=== PATIENT | female | born 2000 | race Caucasian/White ===

== ENCOUNTER 2020-09-16 11:56 | Emergency (ER) | payer OTHER, BC ==
[2020-09-16] MEDS ORDERED: ISIBLOOM 28 DA1 EACH PO (12:13)
[2020-09-16 13:07] VITALS: BP 135/82
== END 2020-09-16 13:18 | disposition home or self-care (01) ==
LOC: ED 11:56
DX: T23.272A Burn of second degree of left wrist, initial encounter (principal); Z88.0 Allergy status to penicillin; X10.0XXA Contact with hot drinks, initial encounter; Y99.0 Civilian activity done for income or pay
CPT/HCPCS: 90715

== ENCOUNTER → 2020-12-01 | Outpatient (CLI) | payer BC ==
[~2020-12-01] MED LIST: ISIBLOOM 28 DA1 EACH PO
== END ==
LOC: LAB 10:36
DX: Z03.89 Encounter for observation for other suspected diseases and conditions ruled out (principal); U07.1 COVID-19

== ENCOUNTER → 2021-05-18 | Outpatient (CLI) | payer BC | LOC: LAB 18:43 | DX: Z20.822 Contact with and (suspected) exposure to COVID-19 (principal) ==

== ENCOUNTER → 2022-01-10 | Outpatient (CLI) | payer OTHER | LOC: RAD 11:59 | DX: M79.671 Pain in right foot (principal); M79.89 Other specified soft tissue disorders ==

== ENCOUNTER → 2022-05-28 | Outpatient (CLI) | payer OTHER | LOC: LAB 11:32 | DX: Z20.822 Contact with and (suspected) exposure to COVID-19 (principal) ==

== ENCOUNTER → 2022-10-11 | Outpatient (CLI) | payer BC | LOC: LAB 12:10 | DX: J06.9 Acute upper respiratory infection, unspecified (principal) ==